=== PATIENT | male | born 1970 | race African-American/Black ===

== ENCOUNTER 2020-10-19 15:16 | Observation (INO) ==
[2020-10-19 15:41] LABS: Basophils % 0.4 % (0.0-0.8); Eosinophils # 0.2 10*3/uL (0.0-0.87); Hematocrit 45.2 VOL% (42.0-52.0); Immature Granulocytes % 0.5 %; Immature Granulocytes Absolute 0.05 #; Lymphocytes # 2.7 10*3/uL (1.4-4.0); Mean Corpuscular Volume 93.4 FL (87-102); Mean Platelet Volume 11.1 FL (9.6-12.0); Monocytes % 7.8 % (1.7-12.7); Neutrophils % 63.3 % (38.7-73.9); Platelet Count 308 T/CUMM (130-400); Red Blood Count 4.84 MC/CUMM (3.8-5.5); White Blood Count 10.4 T/CUMM (4-12)
[2020-10-19 15:58] LABS: Albumin 3.9 G/DL (3.4-5.0); Bilirubin,Total 0.9 MG/DL (0.2-1.0); Calcium 8.8 MG/DL (8.5-10.1); Osmolality,Calculated 274.7 MOS/KG (273-304); Potassium 4.2 MMOL/L (3.5-5.1); Total Protein 7.9 G/DL (6.4-8.2)
[2020-10-19] MEDS ORDERED: ASPIRIN 325 MG TABLET PO STA (16:02)
[2020-10-19] MEDS: NITROGLYCERIN SL 0.4 MG TABLET SL PRN ×2 (16:11→16:15)
[2020-10-19 16:17] LABS: INR 1.1; PT Patient Result 11.3 SECS (9.8-11.9)
[2020-10-19] MEDS ORDERED: ONDANSETRON 4 MG/2 ML VIAL IV PRN (16:50)
[2020-10-19] MEDS ORDERED: MAGNESIUM SULF RIDER 2 GM in PREMIX 1 EACH IV PRN (16:50)
[2020-10-19] MEDS ORDERED: MAGNESIUM SULF RIDER 4 GM in PREMIX 1 EACH IV PRN (16:50)
[2020-10-19] MEDS ORDERED: LACTULOSE 20 GM/30 ML UDCUP PO PRN (16:50)
[2020-10-19] MEDS ORDERED: SODIUM CHLORIDE 0.9% 1,000 ML IV SCH (17:00)
[2020-10-19 17:19] LABS: Troponin I < 0.015 NG/ML (0.00-0.045)
[2020-10-19] MEDS ORDERED: predniSONE 20 MG TABLET PO ONE (17:30)
[2020-10-19] MEDS: PANTOPRAZOLE 40 MG TABLET PO SCH (18:33)
[2020-10-19] MEDS: GABAPENTIN 100 MG CAPSULE PO SCH ×2 (18:33→20:33)
[2020-10-19] MEDS: COLCHICINE 0.6 MG CAPSULE PO SCH ×2 (18:33→20:33)
[2020-10-19] MEDS: ASPIRIN CHEW 81 MG TABLET PO SCH ×2 (18:34→23:49)
[2020-10-19] MEDS: ATORVASTATIN 20 MG TABLET PO SCH (20:33)
[2020-10-20 01:04] LABS: Basophils % 0.2 % (0.0-0.8); Eosinophils % 0.1 % (0.00-10.9); Hematocrit 43.1 VOL% (42.0-52.0); Hemoglobin 13.5 GM/DL (14.0-18.0); Immature Granulocytes % 0.4 %; Immature Granulocytes Absolute 0.04 #; Lymphocytes # 0.9 10*3/uL (1.4-4.0); Lymphocytes % 8.1 % (21.2-54.2); Mean Corpuscular HGB Conc 31.3 GM/DL (32-36); Mean Corpuscular Volume 93.7 FL (87-102); Mean Platelet Volume 11.2 FL (9.6-12.0); Monocytes % 1.4 % (1.7-12.7); Neutrophils % 89.8 % (38.7-73.9); Platelet Count 311 T/CUMM (130-400); Red Cell Distribution Width 12.9 % (9.3-17.3); White Blood Count 10.5 T/CUMM (4-12)
[2020-10-20 01:25] LABS: Albumin 3.4 G/DL (3.4-5.0); Bilirubin,Total 0.7 MG/DL (0.2-1.0); Calcium 9.1 MG/DL (8.5-10.1); Osmolality,Calculated 276.8 MOS/KG (273-304); Potassium 4.1 MMOL/L (3.5-5.1); Risk Ratio 4.95; Total Protein 7.7 G/DL (6.4-8.2); VLDL CHOLESTEROL 11.6 MG/DL
[2020-10-20 01:27] LABS: Troponin I < 0.015 NG/ML (0.00-0.045)
[2020-10-20] MEDS: predniSONE 20 MG TABLET PO SCH (08:47)
[2020-10-20] MEDS: LISINOPRIL/HCTZ 20-25 MG TABLET PO SCH (08:48)
[2020-10-20] MEDS: ASPIRIN CHEW 81 MG TABLET PO SCH ×2 (08:49→15:29)
[2020-10-20] MEDS: COLCHICINE 0.6 MG CAPSULE PO SCH ×2 (08:49→20:29)
[2020-10-20] MEDS: GABAPENTIN 100 MG CAPSULE PO SCH ×4 (08:49→20:30)
[2020-10-20] MEDS: PANTOPRAZOLE 40 MG TABLET PO SCH (08:49)
[2020-10-20 10:01] LABS: Troponin I < 0.015 NG/ML (0.00-0.045)
[2020-10-20] MEDS: EZETIMIBE 10 MG TABLET PO SCH (11:10)
[2020-10-20] MEDS: ATORVASTATIN 20 MG TABLET PO SCH (20:29)
[2020-10-21] MEDS ORDERED: ASPIRIN CHEW 81 MG TABLET PO SCH (09:00)
[2020-10-21] MEDS: GABAPENTIN 100 MG CAPSULE PO SCH ×2 (10:00→14:30)
[2020-10-21] MEDS: PANTOPRAZOLE 40 MG TABLET PO SCH (10:01)
[2020-10-21] MEDS: EZETIMIBE 10 MG TABLET PO SCH (10:01)
[2020-10-21] MEDS: LISINOPRIL/HCTZ 20-25 MG TABLET PO SCH (10:01)
[2020-10-21] MEDS: predniSONE 20 MG TABLET PO SCH (10:01)
[2020-10-21] MEDS: COLCHICINE 0.6 MG CAPSULE PO SCH (10:02)
[2020-10-21] MEDS ORDERED: LIDOCAINE 5% PATCH TRANSDERM SCH (11:00)
[2020-10-21] MEDS ORDERED: traMADol 50 MG TABLET PO SCH (11:00)
[2020-10-21 16:27] VITALS: BP 176/83
== END 2020-10-21 16:20 | disposition home or self-care (01) ==
LOC: N.EDINP 15:16 → N.ED 15:16 → N.TELEN 18:05
PROVIDERS: ADMIT Internal Medicine Cardiovascular Disease; ATTEND Internal Medicine Cardiovascular Disease